=== PATIENT | male | born 1965 | race Caucasian/White ===

== ENCOUNTER 2019-07-23 09:54 | Emergency (ER) | payer MEDICAID ==
[~2019-07-23] VITALS: Ht 170.2 cm; Wt 70.3 kg
[2019-07-23 10:00] VITALS: BP_SYST 140
--- NOTE | 2019-07-23 10:00 | NUR ---
Pt bib ambulance from home with c/o right eye pain, 11/27. Reports he had a wire in it and went [facility] last night and they flushed his eye. V/S stable, pt is afebrile. Will continue to monitor.
--- NOTE | 2019-07-23 10:05 | NUR ---
ER Dr. Foy at bedside examining patient.
--- NOTE | 2019-07-23 10:11 | NUR ---
Dr. Foy attempted to assess patient, pt refused. Eye drops applied and pt left.
[2019-07-23] MEDS ORDERED: PROPARACAINE (OPTHANINE 0.5%) 15 ML DROPS OP ONE ×2 (10:15→10:24)
[2019-07-23 10:16] VITALS: BP_SYST 140
--- NOTE | 2019-07-23 10:17 | NUR ---
pt was being verbally abusive towards the staff. Eloped from the hospital
== END 2019-07-23 10:13 | disposition left against medical advice (07) ==
LOC: SED 09:54
DX: S05.91XA Unspecified injury of right eye and orbit, initial encounter (principal); Y04.2XXA Assault by strike against or bumped into by another person, initial encounter; Y93.89 Activity, other specified; Y92.89 Other specified places as the place of occurrence of the external cause; Y99.8 Other external cause status
CPT/HCPCS: 99283